=== PATIENT | female | born 1995 | race Caucasian/White ===

== ENCOUNTER 2017-05-17 14:38 | Emergency (ER) | payer OTHER ==
[~2017-05-17] VITALS: Ht 160 cm; Wt 56.0 kg
[~2017-05-17 14:38] MED LIST: HYDR-906 PO; IBUP200C11; NAPR-260 PO; ONDA4TAB8 PO
[2017-05-17 14:41] VITALS: Ht 160 cm; Wt 56.0 kg
[2017-05-17 16:28] LABS: ADD SCAN DIFF NO
--- NOTE | 2017-05-17 16:28 | ERD ---
ER Documentation Chief Complaint Date/Time DATE: 05/17/17 TIME: 16:23 Chief Complaint FEELS HAVING LUPUS FLARE, HAS BODY ACHES, OFF MEDS 6 MOS HPI This is a 21-year-old female presenting to emergency department for multiple complaints. Patient states she has generalized body aches including pain to bilateral knees, bilateral shoulders and back. Patient states she has a history of lupus and was diagnosed January 2016. Patient states she was being treated with medications and when off medications approximately 6 months ago. Patient's primary care doctor is Dr. Agudelo. Patient states she developed pain starting today and believes she is having a flare-up of her lupus. Patient states she normally takes ibuprofen for pain however did not take any medications today. No fevers or chills. No abdominal pain. Patient had one episode of vomiting earlier today. Emesis was nonbloody and nonbilious. No diarrhea. No dysuria or hematuria. Patient rating pain 8/10 and states pain feels "achy." No chest pain, shortness of breath or difficulty breathing. ROS All systems reviewed and are negative except as per history of present illness. Medications Home Meds Active Scripts Ibuprofen* (Motrin*) 400 Mg Tab, 400 MG PO Q6, #20 TAB Prov:RICHARD MCDONALD NP 05/17/17 Hydrocodone/Acetaminophen ([place] 5-325 Tablet) 1 Each Tablet, 1 EACH PO Q6, #12 TAB Prov:KETAN MEREDITH PA-C 06/29/16 Naproxen* (Naprosyn*) 500 Mg Tablet, 500 MG PO BID Y for PAIN AND/OR INFLAMMATION, #30 TAB Prov:KETAN MEREDITH PA-C 06/29/16 Ondansetron Hcl* (Zofran*) 4 Mg Tablet, 4 MG PO Q6H for NAUSEA AND/OR VOMITING, #30 TAB Prov:JOSE GILLESPIE PA-C 06/04/16 Reported Medications Ibuprofen* (Advil*) 200 Mg Capsule 02/23/14 Allergies Allergies: Coded Allergies: No Known Allergy (Unverified , 06/29/16) PMhx/Soc Medical and Surgical Hx: pt denies Surgical Hx History of Surgery: No Anesthesia Reaction: No Hx Neurological Disorder: No Hx Respiratory Disorders: No Hx Cardiac Disorders: No Hx Psychiatric Problems: No Hx Miscellaneous Medical Probl: Yes (CHLAMYDIA, lupus) Hx Alcohol Use: Yes (on weekends, socially) Hx Substance Use: Yes (marijuana) Hx Tobacco Use: No Smoking Status: Never smoker Physical Exam Vitals Vital Signs Date Time Temp Pulse Resp B/P Pulse Ox O2 Delivery O2 Flow Rate FiO2 05/17/17 19:56 99.1 78 16 146/77 98 Room Air 05/17/17 14:41 98.1 86 18 129/71 99 Physical Exam Const: Alert, ill-appearing Head: Atraumatic Eyes: Normal Conjunctiva ENT: Normal External Ears, Nose and Mouth. Neck: Full range of motion..~ No meningismus. Resp: Clear to auscultation bilaterally. No wheezing, rhonchi or crackles. Cardio: Regular rate and rhythm, no murmurs Abd: Soft, non tender, non distended. Normal bowel sounds Skin: No petechiae or rashes Back: No midline or flank tenderness. No CVA tenderness. Ext: No cyanosis, or edema Neur: Awake and alert Psych: Normal Mood and Affect Result Diagram: 05/17/17 1620 05/17/17 1620 Results 24 hrs Laboratory Tests Test 05/17/17 16:20 05/17/17 16:37 White Blood Count 7.610^3/ul Red Blood Count 4.8710^6/ul Hemoglobin 14.0g/dl Hematocrit 43.6% Mean Corpuscular Volume 89.5fl Mean Corpuscular Hemoglobin 28.7pg Mean Corpuscular Hemoglobin Concent 32.1g/dl Red Cell Distribution Width 13.4% Platelet Count 46543^3/UL Mean Platelet Volume 11.2fl Neutrophils % 83.4% Lymphocytes % 8.3% Monocytes % 7.9% Eosinophils % 0.0% Basophils % 0.1% Nucleated Red Blood Cells % 0.0/100WBC Neutrophils # 6.310^3/ul Lymphocytes # 0.610^3/ul Monocytes # 0.610^3/ul Eosinophils # 0.010^3/ul Basophils # 0.010^3/ul Nucleated Red Blood Cells # 0.010^3/ul Erythrocyte Sedimentation Rate 5mm/Hr Sodium Level 141mmol/L Potassium Level 3.9mmol/L Chloride Level 106mmol/L Carbon Dioxide Level 26mmol/L Anion Gap 13 Blood Urea Nitrogen 5mg/dl Creatinine 0.54mg/dl Glucose Level 82mg/dl Calcium Level 9.5mg/dl Total Bilirubin 0.6mg/dl Direct Bilirubin 0.00mg/dl Indirect Bilirubin 0.6mg/dl Aspartate Amino Transf (AST/SGOT) 26IU/L Alanine Aminotransferase (ALT/SGPT) 47IU/L Alkaline Phosphatase 97IU/L Troponin I < 0.012ng/ml C-Reactive Protein 1.1mg/dl Total Protein 7.5g/dl Albumin 4.8g/dl Globulin 2.70g/dl Albumin/Globulin Ratio 1.77 Bedside Urine pH (LAB) 7.5 Bedside Urine Protein (LAB) Negative Bedside Urine Glucose (UA) Negative Bedside Urine Ketones (LAB) Negative Bedside Urine Blood 1+ Bedside Urine Nitrite (LAB) Negative Bedside Urine Leukocyte Esterase (L Negative Current Medications Medications (Trade) Dose Ordered Sig/Sebas Route PRN Reason Start Time Stop Time Status Last Admin Dose Admin Ketorolac Tromethamine (Toradol) 30 mg ONCE STAT IV 05/17/17 17:21 05/17/17 17:24 DC 05/17/17 17:30 Procedures/MDM Chest x-ray [place] [id number] Radiology Main Line: [phone] DIAGNOSTIC IMAGING REPORT Patient: JAVIER AREVALO : 1995 Age: 21 Sex: F MR #: [id number] DOS: 05/17/17 1600 Ordering MD: RICHARD MCDONALD NP Location: [facility] Room/Bed: PROCEDURE: Chest Radiograph. CLINICAL INDICATION: Chest pain. Lupus. TECHNIQUE: Single frontal chest radiograph. COMPARISON: None available FINDINGS: The cardiomediastinal silhouette is within normal limits. No infiltrate or effusion is seen. The bones are intact. IMPRESSION: 1. Unremarkable chest radiograph. EKG: Rate/Rhythm: Sinus rhythm with sinus arrhythmia with short ID otherwise normal EKG. Heart rate 71 bpm QRS, ST, T-waves: No changes consistent w/ acute ischemia Impression: No evidence of ischemia or arrhythmia CBC shows no significant anemia or infection. CMP shows no significant electrolyte imbalance CRP mildly elevated 1.1 ESR 5 Troponin <0.012 Urine dip 1+ blood otherwise negative Urine negative MDM: This is a 21-year-old female, with past medical history for lupus, presenting to the emergency department for multiple complaints. Patient has history of lupus and has been off her medications for lupus in the past 6 months. Patient was diagnosed in January [address] Agudelo. Currently patient has need to bilateral knees, bilateral shoulders, back and generalized body aches. Vital signs are stable. No fevers or chills. Labs ordered and IV access obtained per staff radiologist. Patient given Toradol 30 mg IV and patient states pain has improved after reassessment. Labs are overall unremarkable as detailed above. Troponin is negative. Chest x-ray reviewed by radiologist as unremarkable. EKG as reviewed by Dr. Sheth shows sinus rhythm with sinus arrhythmia with short ID otherwise normal EKG. Vital signs remained stable. No fevers or chills peer consulted Dr. Sheth regarding this patient and we agree that patient is appropriate for outpatient management. Low suspicion for pleuritis, pericarditis, vasculitis, acute PR, pleural effusion and pneumonia. Patient's differential diagnosis includes but not limited to lupus flare, SLE, osteoarthritis, rheumatoid arthritis, Sjogren syndrome and other rheumatological causes for pain. Patient is appropriate for outpatient management and will be given prescription for ibuprofen. Instructed patient to follow-up with primary care provider in the next 2-3 days for reassessment and additional management. Return to ED for any high fever, chest pain, difficulty breathing, shortness breath, wheezing, vomiting, diarrhea, abdominal pain or any new or worsening symptoms. Patient verbalizes understanding. All questions answered at discharge. Departure Diagnosis: Primary Impression: Body aches Condition: Stable RICHARD MCDONALD NP May 17, 2017 16:27
[2017-05-17 16:32] LABS: URINE BLOOD (Dip) POC 1+ (NEGATIVE)
[2017-05-17 16:46] LABS: BASOPHILS % 0.1 % (0.0-2.0); HEMATOCRIT 43.6 % (37.0-47.0); LYMPHOCYTES # 0.6 10^3/ul (0.8-2.9); LYMPHOCYTES % 8.3 % (15.0-51.0); MEAN CORPUSCULAR HEMOGLOBIN 28.7 pg (29.0-33.0); MEAN CORPUSCULAR HGB CONC 32.1 g/dl (32.0-37.0); MEAN CORPUSCULAR VOLUME 89.5 fl (82.0-101.0); MEAN PLATELET VOLUME 11.2 fl (7.4-10.4); MONOCYTE # 0.6 10^3/ul (0.3-0.9); MONOCYTES % 7.9 % (0.0-11.0); NEUTROPHIL # 6.3 10^3/ul (1.6-7.5); NEUTROPHILS % 83.4 % (39.0-77.0); PLATELET COUNT 144 10^3/UL (140-415); RED BLOOD COUNT 4.87 10^6/ul (4.20-5.40); RED CELL DISTRIBUTION WIDTH 13.4 % (11.5-14.5); WHITE BLOOD COUNT 7.6 10^3/ul (4.8-10.8)
[2017-05-17 17:00] LABS: ALANINE AMINOTRANSFERASE 47 IU/L (13-69); ALBUMIN 4.8 g/dl (3.3-4.9); ALBUMIN/GLOBULIN RATIO 1.77; ALKALINE PHOSPHATASE 97 IU/L (42-121); ANION GAP 13 (8-16); ASPARTATE AMINO TRANSFERASE 26 IU/L (15-46); BILIRUBIN,INDIRECT 0.6 mg/dl (0-1.1); BILIRUBIN,TOTAL 0.6 mg/dl (0.2-1.3); BLOOD UREA NITROGEN 5 mg/dl (7-20); C-REACTIVE PROTEIN 1.1 mg/dl (0.0-0.9); CALCIUM 9.5 mg/dl (8.4-10.2); CARBON DIOXIDE 26 mmol/L (21-31); CHLORIDE 106 mmol/L (97-110); CREATININE 0.54 mg/dl (0.44-1.00); GLUCOSE 82 mg/dl (70-220); POTASSIUM 3.9 mmol/L (3.5-5.1); SODIUM 141 mmol/L (135-144); TOTAL PROTEIN 7.5 g/dl (6.1-8.1)
[2017-05-17 17:09] LABS: TROPONIN-I < 0.012 ng/ml (0.00-0.12)
[2017-05-17] MEDS ORDERED: KETOROLAC 30 MG INJ IV STA (17:21)
--- NOTE | 2017-05-17 17:21 | RADRPT ---
PROCEDURE: Chest Radiograph. CLINICAL INDICATION: Chest pain. Lupus. TECHNIQUE: Single frontal chest radiograph. COMPARISON: None available FINDINGS: The cardiomediastinal silhouette is within normal limits. No infiltrate or effusion is seen. Th e bones are intact. IMPRESSION: 1. Unremarkable chest radiograph. RPTAT: AA .Good Baldwin MD, MD Date Time Electronically viewed and signed by .Good Baldwin MD, on 05/17/2017 17:20 .B/
[2017-05-17] MEDS ORDERED: IBUP400T22 PO (19:30)
[2017-05-17 19:56] VITALS: BP 146/77; PULSE 78; RESP 16; TEMP 99.1
== END 2017-05-17 19:59 | disposition home or self-care (01) ==
LOC: FTE 14:38
DX: M25.562 Pain in left knee (principal); M25.561 Pain in right knee; M25.512 Pain in left shoulder; M25.511 Pain in right shoulder; M54.9 Dorsalgia, unspecified; R07.9 Chest pain, unspecified
CPT/HCPCS: 71010; 80053; 81003; 84484; 85025; 85651; 86140; 93005; 96374; J1885; Z7502

== ENCOUNTER 2018-04-21 23:18 | Emergency (ER) | END 2018-04-22 01:55 | disposition home or self-care (01) ==

== ENCOUNTER 2018-12-27 11:18 | Emergency (ER) | payer OTHER ==
[~2018-12-27] VITALS: Ht 152.4 cm; Wt 52.3 kg
[~2018-12-27 11:18] MED LIST changes: +HYDR-4011 PO; -HYDR-906 PO; +IBUP-1542 PO; +IBUP-1561 PO; -NAPR-260 PO; +NAPR-985 PO; +TRAM50TA2 PO
[2018-12-27 11:22] VITALS: Ht 152.4 cm; Wt 52.3 kg
[2018-12-27] MEDS ORDERED: IBUPROFEN 600 MG TAB PO ONE (13:30)
[2018-12-27] MEDS ORDERED: NAPR-985 PO (14:40)
--- NOTE | 2018-12-27 14:54 | ERD ---
ER Documentation Chief Complaint Chief Complaint VOMITITNG AND ABDOMINAL PAIN HPI 23-year-old female presenting with abdominal pain and some vomiting. Patient recently had a Nexplanon has continued pain. She denies any dysuria. Denies back pain. Denies any changes to bowel movements. Medical history is lupus. NKDA. Surgical history denies. Social history:smokes a few times a day ROS All systems reviewed and are negative except as per history of present illness. Medications Home Meds Active Scripts Naproxen* (Naprosyn*) 500 Mg Tablet, 500 MG PO BID PRN for PAIN AND/OR INFLAMMATION, #30 TAB Prov:LUIS ALBERTO JACKSON PA-C 12/27/18 Tramadol HCl (Tramadol HCl) 50 Mg Tablet, 50 MG PO Q6 PRN for SEVERE PAIN LEVEL 7-10, #20 TAB Prov:TEJINDER SHIPMAN [employer] 04/22/18 Ibuprofen* (Motrin*) 600 Mg Tab, 600 MG PO Q6H PRN for PAIN AND OR ELEVATED TEMP, #30 TAB Prov:TEJINDER SH[employer]MAN [employer] 04/22/18 Ibuprofen* (Motrin*) 400 Mg Tab, 400 MG PO Q6, #20 TAB Prov:RICHARD MCDONALD NP 05/17/17 Hydrocodone/Acetaminophen ([place] 5-325 Tablet) 1 Each Tablet, 1 EACH PO Q6, #12 TAB Prov:KETAN MEREDITH PA-C 06/29/16 Naproxen* (Naprosyn*) 500 Mg Tablet, 500 MG PO BID PRN for PAIN AND/OR IN FLAMMATION, #30 TAB Prov:KETAN MEREDITH PA-C 06/29/16 Ondansetron Hcl* (Zofran*) 4 Mg Tablet, 4 MG PO Q6H for NAUSEA AND/OR VOMITING, #30 TAB Prov:JOSE GILLESPIE PA-C 06/04/16 Reported Medications Ibuprofen* (Advil*) 200 Mg Capsule 02/23/14 Allergies Allergies: Coded Allergies: No Known Allergy (Unverified , 06/29/16) PMhx/Soc Medical and Surgical Hx: pt denies Medical Hx, pt denies Surgical Hx History of Surgery: No Anesthesia Reaction: No Hx Neurological Disorder: No Hx Respiratory Disorders: No Hx Cardiac Disorders: No Hx Psychiatric Problems: No Hx Miscellaneous Medical Probl: Yes (CHLAMYDIA, lupus) Hx Alcohol Use: Yes (on weekends, socially) Hx Substance Use: Yes (marijuana) Hx Tobacco Use: No Smoking Status: Current some day smoker FmHx Family History: No diabetes, No coronary disease, No other Physical Exam Vitals Vital Signs Date Temp Pulse Resp B/P (MAP) Pulse Ox O2 O2 Flow FiO2 Time Delivery Rate 12/27/18 97.7 75 19 70 11:22 Physical Exam GENERAL: The patient is well-appearing, well-nourished, in no acute distress HEENT: Atraumatic. Conjunctivae are pink. Pupils equal, round, and reactive to light. There is no scleral icterus. Tympanic membranes clear bilaterally. Oropharynx clear. NECK: C-spine is soft and supple. There is no meningismus. There is no cervical lymphadenopathy. CHEST: Clear to auscultation bilaterally. There are no rales, wheezes or rhonchi. HEART: Regular rate and rhythm. No murmurs, clicks, rubs or gallops. ABDOMEN: To bowel sounds. Mild tenderness palpation suprapubic region and lateralized to the left lower quadrant. Results 24 hrs Laboratory Tests Test 12/27/18 13:38 12/27/18 13:42 Urine Color STRAW Urine Clarity CLEAR Urine pH 7.0 Urine Specific [place] 1.004 Urine Ketones NEGATIVE mg/dL Urine Nitrite NEGATIVE mg/dL Urine Bilirubin NEGATIVE mg/dL Urine Urobilinogen NEGATIVE mg/dL Urine Leukocyte Esterase NEGATIVE Ramesh/ul Urine Hemoglobin NEGATIVE mg/dL Urine Glucose NEGATIVE mg/dL Urine Total Protein NEGATIVE mg/dl POC Beta HCG, Qualitative NEGATIVE Current Medications Medications Dose Sig/[place]ebas Start Time Status Last (Trade) Ordered Route PRN Stop Time Admin Dose Reason Admin Ibuprofen 600 mg ONCE ONCE 12/27/18 DC 12/27/18 (Motrin) PO 13:30 13:33 12/27/18 13:33 Procedures/MDM DIAGNOSTIC IMAGING REPORT Patient: JAVIER AREVALO : 1995 Age: 23 Sex: F MR #: [id number] DOS: 12/27/18 1326 Ordering MD: RANDALL JACKSON PA-C Location: [facility] Room/Bed: PROCEDURE: US Pelvis. CLINICAL INDICATION: pelvic pain TECHNIQUE: Multiple sonographic images of the pelvis were obtained utilizing transabdominal technique. The images were reviewed on a PACS workstation. COMPARISON: None. FINDINGS: The uterus is normal in size with a normal appearance of the myometrium. The uterus measures 8.4 x 3.1 x 3.6 cm. The endometrial stripe is homogeneous in appearance and has the thickness of 8 mm. The ovaries are normal in size and echogenicity. Normal Doppler flow is identified in both ovaries. The right ovary measures 2.6 x 1.4 x 2.1 cm. The left ovary measures 4.3 x 2.6 x 2.9 cm. There is a 3.4 cm simple cyst in the left ovary. No free fluid is present within the pelvis. RPTAT: AA IMPRESSION: 3.4 cm simple cyst in the left ovary. MDM: 23-year-old female presenting with findings consistent with ovarian cyst. I have low suspicion for torsion. Patient has findings consistent with urinary tract infection I will treat with antibiotics. I have low suspicion for pyelonephritis. I have low suspicion for acute abdominal emergency. Patient is discharged stricter precautions and told to follow-up with primary care within 1-2 days for close evaluation. All questions answered at discharge Departure Diagnosis: Primary Impression: Ovarian cyst Condition: Stable Patient Instructions: Ovarian Cyst Referrals: [facility] YOU HAVE RECEIVED A MEDICAL SCREENING EXAM AND THE RESULTS INDICATE THAT YOU DO NOT HAVE A CONDITION THAT REQUIRES URGENT TREATMENT IN THE EMERGENCY DEPARTMENT. FURTHER EVALUATION AND TREATMENT OF YOUR CONDITION CAN WAIT UNTIL YOU ARE SEEN IN YOUR DOCTORS OFFICE WITHIN THE NEXT 1-2 DAYS. IT IS YOUR RESPONSIBILITY TO MAKE AN APPOINTMENT FOR FOLOW-UP CARE. IF YOU HAVE A PRIMARY DOCTOR --you should call your primary doctor and schedule an appointment IF YOU DO NOT HAVE A PRIMARY DOCTOR YOU CAN CALL OUR PHYSICIAN REFERRAL HOTLINE AT IF YOU CAN NOT AFFORD TO SEE A PHYSICIAN YOU CAN CHOSE FROM THE FOLLOWING [facility] [address] [facility] [address] [facility]. [facility] [address] [facility] [address] [facility] [address] [facility]. [facility] [address] Additional Instructions: FOLLOW UP WITH YOUR PRIMARY CARE PHYSICIAN TOMORROW.Return to this facility if you are not improving as expected. LUIS ALBERTO JACKSON PA-C Dec 27, 2018 14:54
[2018-12-27 15:00] VITALS: BP 101/62; PULSE 79; RESP 19
== END 2018-12-27 15:00 | disposition home or self-care (01) ==
LOC: FTE 11:18
DX: N83.202 Unspecified ovarian cyst, left side (principal); F17.210 Nicotine dependence, cigarettes, uncomplicated; R10.2 Pelvic and perineal pain
CPT/HCPCS: 76856; 81003; 81025; Z7502; Z7610

== ENCOUNTER 2019-07-22 09:03 | Emergency (ER) | payer OTHER ==
[~2019-07-22] VITALS: Ht 152.4 cm; Wt 53.7 kg
[~2019-07-22 09:03] MED LIST changes: +ONDA4TAB14 PO
[2019-07-22 09:06] VITALS: BP 125/68; PULSE 76; RESP 18; Ht 152.4 cm; Wt 53.7 kg
[2019-07-22] MEDS ORDERED: KETOROLAC 30 MG INJ IM STA (10:20)
== END 2019-07-22 13:25 | disposition home or self-care (01) ==
LOC: FTE 09:03
DX: R10.2 Pelvic and perineal pain (principal)
CPT/HCPCS: 36415; 76856; 80048; 81001; 81025; 85025; 87591; 93005; 96372; J1885; Z7502